=== PATIENT | female | born 1985 | race African-American/Black ===

== ENCOUNTER 2017-08-17 07:54 | Observation (INO) | payer OTHER ==
[2017-08-17 08:12] VITALS: BP 128/88; PULSE 84; TEMP 98.7
--- NOTE | 2017-08-17 08:36 | PDOC ---
History of Present Illness - General Chief Complaint: Abscess Boil Stated Complaint: ABSCESS BOIL,INFECTION Time Seen by Provider: 08/17/17 08:20 History Source: Patient - History of Present Illness Initial Comments: 08/17/17 11:30 Patient is a 32 y.o. female with a PMH of Asthma who presents c/o 2-3 day h/o of pain with a R sided rectal abscess. Patient notes she has a h/o "boils" for which she has both I&D as well as resolution with antibiotics (patient thinks Cephalexin, but is not certain) however this is the first time she has a similar pain in her rectum, her boils are usually around her anus or in between her buttocks. Patient states she has had similar boils for approximately 12 years coinciding with the of her son. Patient denies any lesions in any where other than her perianal area or buttocks. Patient states the pain is present during bowel movements and when she lays on her side. Patient denies any fevers, chills, nausea or vomiting. Allergies: Shellfish - has had previous IV contrast w/o incident Surgical: none Social: (+) 4 cigarettes daily; 2-3 alcoholic drinks weekly; denies recreational drugs PMD: in [place] - cannot recall name. Past History - Past Medical History Allergies/Adverse Reactions: Allergies Allergy/AdvReac Type Severity Reaction Status Date / Time shellfish derived Allergy Verified 08/17/17 08:34 Home Medications: Ambulatory Orders Amoxicillin/Potassium Clav [Augmentin 875-125 Tablet] 1 each PO BID #14 tablet 08/17/17 Asthma: Yes - Suicide/Smoking/Psychosocial Hx Smoking History: Current every day smoker Number of Cigarettes Smoked Daily: 4 Information on smoking cessation initiated: No Review of Systems - Review of Systems Constitutional: No: Chills, Fever HEENTM: No: Blurred Vision, Double Vision Respiratory: No: Shortness of Breath Cardiac (ROS): No: Chest Pain : Yes: Pain, Lesions. No: Burning, Dysuria, Hematuria *Physical Exam - Vital Signs Last Vital Signs Temp Pulse Resp BP Pulse Ox 98.7 F 84 18 128/88 100 08/17/17 08:07 08/17/17 08:07 08/17/17 08:07 08/17/17 08:07 08/17/17 08:07 - Physical Exam General Appearance: Yes: Nourished, Appropriately Dressed Respiratory/Chest: positive: Lungs Clear Cardiovascular: positive: S1, S2 Female Pelvic Exam: positive: other (R sided rectal wall thickening in midline- approximately 1-2 cm from inferior end, circular, extends 2-3 cm superiorly) Gastrointestinal/Abdominal: positive: Normal Bowel Sounds, Soft Extremity: positive: Normal Capillary Refill, Normal Inspection Integumentary: positive: Other (L buttock 0.2 cm elevated, TTP, fluctuant mass with some purulent discharge, no surrounding erythema) Neurologic: positive: Fully Oriented, Alert ED Treatment Course - LABORATORY CBC & Chemistry Diagram: 08/17/17 10:30 08/17/17 10:30 Medical Decision Making - Medical Decision Making 08/17/17 11:33 Patient is a 32 y.o. female who presents with a R sided rectal mass. Initial DDx is for hemorrhoid vs. rectal abscess vs. STI sequelae PLAN: 1. Pelvis CT w/contrast 2. CBC, CMP 3. Zosyn 4. Possible drainage of L buttock abscess 08/17/17 13:17 Case d/w Dr. Hoang (General Surgery) agrees with plan; Cr 0.7, patient to receive CT for further evaluation 08/17/17 14:34 Spoke with radiology, no angelica-rectal fluid collection, possible rectal wall thickening; suggest further evaluation 08/17/17 14:[address]: ill-defined focal skin thickening along the medial aspects of both thighs; questionable thickening of rectal wall. Case d/w Dr Hawkins - suggests Augmentin x 7 days (for both visible lesions) and follow up with PMD for referral to [facility] or Colorectal surgeon 08/17/17 15:38 Patient discharged with copy of CT scan and extensive counseling on post- discharge instruction as well as return precautions. *DC/Admit/Observation/Transfer Diagnosis at time of Disposition: Rectal abnormality - Discharge Dispostion Disposition: HOME Condition at time of disposition: Good Admit: No - Prescriptions - Patient Instructions
[2017-08-17] MEDS ORDERED: SODIUM CHLORIDE 0.9% 1000 ML INFUS.BAG IV ONE (09:42)
[2017-08-17] MEDS ORDERED: PIPERACILLIN/TAZOB 3.375 GM 50 ML IVPB ONE ×2 (09:42→10:28)
--- NOTE | 2017-08-17 10:28 | PDOC ---
Attending Attestation - Resident Resident Name: DelphineMaría - ED Attending Attestation I have performed the following: I have examined & evaluated the patient, The case was reviewed & discussed with the resident, I agree w/resident's findings & plan, Exceptions are as noted - HPI HPI: 08/17/17 10:25 32-year-old female with no significant past medical history other than recurring perirectal abscesses requiring drainage in the past presents with progressive and increasing pain around her rectum, no fevers or chills, no pus or blood. - Physicial Exam PE: 08/17/17 10:25 Afebrile. Vital signs normal. Abdomen benign. Rectal exam: There is a 2 cm abscess in the left gluteal/perianal area draining pus but without surrounding cellulitis. This is same location as past I+D. On rectal exam, there is a tender and indurated area along the right perirectal space, no blood or pus - Medical Decision Making 08/17/17 10:27 Patient seen and evaluated with the resident. I agree with the overall evaluation, assessment, and management with the following summary of visit: 32-year-old female with perianal and possibly perirectal internal abscess. Well- appearing and nontoxic, no active bleeding. Check labs Pain control CT pelvis/rectal area Will need I&D of external abscess, may need to go to operating room if has internal abscesses as well.
[2017-08-17 10:46] LABS: BASOPHIL 0.3 % (0-2.0); EOSINOPHIL 1.1 % (0-4.5); MCH 27.2 pg (25.7-33.7); MCHC 33.7 g/dl (32.0-36.0); MEAN CELL VOLUME 80.7 fl (80-96); MEAN PLT VOLUME 7.9 fl (7.5-11.1); NEUTROPHILS 61.3 % (42.8-82.8); PLATELET COUNT 197 K/MM3 (134-434); RDW 14.3 % (11.6-15.6); WHITE BLOOD COUNT 6.2 K/mm3 (4.0-10.0)
[2017-08-17 11:16] LABS: ALBUMIN 3.3 g/dl (3.4-5.0); ANION GAP 5 (8-16); CALCIUM 8.5 mg/dL (8.5-10.1); CO2 27 mmol/L (21-32); CREATININE 0.7 mg/dL (0.55-1.02); GLUCOSE,RANDOM 90 mg/dL (74-106); SGOT/AST 13 U/L (15-37); SGPT/ALT 17 U/L (12-78)
[2017-08-17 11:18] LABS: ALK PHOS 60 U/L (45-117); BILIRUBIN,TOTAL 0.4 mg/dL (0.2-1.0); TOT PROT 6.7 g/dl (6.4-8.2)
--- NOTE | 2017-08-17 20:29 | CONSULT ---
Consult Consult Specialty:: General Surgery Referred by:: Dr. Akers Reason for Consultation:: possible anal abscess - History of Present Illness Chief Complaint: anorectal pain, chronic perineal bumps with drainage History of Present Illness: 32yo F with h/o chronic skin lesions ("boils") in perineal and perianal area which usually drain spontaneously or have been I&D'd at outside ERs; she has also been treated with Keflex tid in past with resolution of some. She presents with few days of anorectal pain and a "boil" just inside anus, where she has never had one before. She has some lesions which come and go periodically and drain intermittently in perineal and groin area, but realized up to a week ago that she was feeling something when she had BMs. She thought it was her usual boils but just at/outside the anus. A few days ago, she felt different while going to bathroom and realized this one seemed to be inside, not outside. No change in BMs. No urinary complaints. + menses now. In the ER, she has normal WBC and is afebrile. Noted to have some external lesions and possible internal fluctuance vs hemorrhoid on SOLANGE, so surgery consulted. She has been given a dose of IV Zosyn. The area is painful and tender - maybe a little more on the right than left, but she cannot tell easily. The lesions began 10-12 years ago after the of her first child. She has not seen a [facility] in several years at least. She is sexually active with one partner. - History Source History Provided By: Patient Limitations to Obtaining History: No Limitations - Past Medical History Pulmonary: Yes: Asthma ...: No Dermatology: Yes: Other (h/o chronic "boils" and bumps on perineal and perianal area, usually drain spontaneously or with I&D at other hospital ER and antibiotics) - Past Surgical History Additional Surgical History: local I&D's - Alcohol/Substance Use Hx Alcohol Use: Yes (social) Number of Drinks Daily: 0 (weekly 2-3 beers/sitting) History of Substance Use: reports: None - Smoking History Smoking history: Current every day smoker Have you smoked in the past 12 months: Yes Aproximately how many cigarettes per day: 4 (2-3 years only) Home Medications - Allergies Allergies/Adverse Reactions: Allergies Allergy/AdvReac Type Severity Reaction Status Date / Time shellfish derived Allergy Verified 08/17/17 08:34 - Home Medications Home Medications: Ambulatory Orders Amoxicillin/Potassium Clav [Augmentin 875-125 Tablet] 1 each PO BID #14 tablet 08/17/17 Family Disease History - Family Disease History Family History: Unremarkable Review of Systems - Review of Systems Constitutional: denies: Chills, Fever Eyes: denies: Blurred Vision, Recent Change in Vision HENT: denies: Difficult Swallowing, Throat Pain Neck: denies: Swollen Glands, Tenderness Cardiovascular: denies: Chest Pain, Palpitations Respiratory: denies: Cough, SOB Gastrointestinal: denies: Abdominal Pain, Constipation, Diarrhea, Nausea, Rectal Bleeding, Vomiting Genitourinary: reports: Lesions (small bumps/boils in perineal and perianal area , tend to come back in same places), Menses. denies: Burning, Dysuria Breasts: reports: No Symptoms Reported Musculoskeletal: denies: Back Pain, Joint Pain, Muscle Pain Integumentary: reports: Lump (see hpi), Wound (see hpi) Neurological: denies: Dizziness, Headache Psychiatric: denies: Anxiety, Depression Physical Exam Vital Signs: Vital Signs Temperature 98.7 F 08/17/17 08:07 Pulse Rate 84 08/17/17 08:07 Respiratory Rate 18 08/17/17 08:07 Blood Pressure 128/88 08/17/17 08:07 O2 Sat by Pulse Oximetry (%) 100 08/17/17 08:07 Constitutional: Yes: Well Nourished, No Distress, Calm Eyes: Yes: Conjunctiva Clear, EOM Intact HENT: Yes: Atraumatic, Normocephalic Neck: Yes: Supple, Trachea Midline Cardiovascular: Yes: Regular Rate and Rhythm. No: Murmur Respiratory: Yes: Regular, CTA Bilaterally Gastrointestinal: Yes: Soft. No: Distention, Tenderness ...Rectal Exam: Yes: Sphincter Tone Normal, Other (soft, ?fluctuant, tender swelling along posterior midline of internal anal canal, not visible externally , no direct tenderness anteriorly, no stool, blood or pus on glove tip; small, firm, raised, round, nodular protruding lesion at left perineum anterior to anus , slightly tender, no drainage expressible but central punctum visible, no surrounding induration or fluctuance (has been there ~3mos per pt, drains at times); small, irregular, nodular growth at right upper inner thigh near groin, no drainage, minimally tender). No: Hemorrhoids/External, Induration Renal/: Yes: Menses Present (per pt, no blood seen). No: CVA Tenderness - Left, CVA Tenderness - Right, Musculoskeletal: No: Joint Stiffness, Joint Swelling Extremities: No: Cool, Cyanosis Edema: No Peripheral Pulses WNL: Yes Integumentary: Yes: Tattoos, Other (small palpable developing folliculitis under right axilla, no clear head, no fluctuance, just mild induration and erythema, mild tenderness, + hair). No: Rash Neurological: Yes: Alert, Oriented Psychiatric: Yes: Alert, Oriented Labs: CBC, BMP 08/17/17 10:30 08/17/17 10:30 Imaging - Results Cat Scan: Report Reviewed (no fluid collection perianal or perineal, possible mildly thickened rectal wall, some skin thickening underlying known lesions at left perineum and right upper inner thigh), Image Reviewed Problem List - Problems (1) Localized swelling, mass and lump, multiple sites Assessment/Plan: perineal and thigh/groin bumps could be chronic/recurrent folliculitis/abscesses , warts or other STDs? perineal lesion could represent anal fistula but location unusual and no internal anterior discomfort suggestive of anal component midline posterior intraanal swelling/tenderness not likely abscess given CT findings, could be hemorrhoid or other lesion anoscopy would be ideal, but pt could not tolerate at this time need to r/o fistula at some point given history of intermittently flaring and draining lesions ER to Rx short antibiotic course [facility] followup to facilitate evaluation for STDs and to reestablish care pt may pursue colorectal referral through PMD for further evaluation to return to an ER if not improving within 48 hours Code(s): R22.9 - LOCALIZED SWELLING, MASS AND LUMP, UNSPECIFIED (2) Anorectal pain Code(s): K62.89 - OTHER SPECIFIED DISEASES OF ANUS AND RECTUM (3) Neoplasm of uncertain behavior of skin of perineum Code(s): D48.5 - NEOPLASM OF UNCERTAIN BEHAVIOR OF SKIN
== END 2017-08-17 18:00 | disposition home or self-care (01) ==
LOC: JER 07:54 → JERBED 14:47
PROVIDERS: ADMIT Internal Medicine; ATTEND Internal Medicine
PROC: 3E03329 Introduction of Other Anti-infective into Peripheral Vein, Percutaneous Approach (ICD-10-PCS; principal; 2017-08-17)
PROC: 3E0337Z Introduction of Electrolytic and Water Balance Substance into Peripheral Vein, Percutaneous Approach (ICD-10-PCS; 2017-08-17)
DX: K62.89 Other specified diseases of anus and rectum (principal); R22.9 Localized swelling, mass and lump, unspecified; D48.5 Neoplasm of uncertain behavior of skin; F17.210 Nicotine dependence, cigarettes, uncomplicated; J45.909 Unspecified asthma, uncomplicated; Z91.013 Allergy to seafood
CPT/HCPCS: 36415; 72193-TC; 80053; 82272; 84703; 85025; 96365; 99282-25; G0378